=== PATIENT | male | born 1995 | race Caucasian/White ===

== ENCOUNTER 2020-09-03 21:23 | Emergency (ER) | payer OTHER, BC ==
[2020-09-03] MEDS ORDERED: Bacitracin Oint 1 GM U/D Packet TOP ONE (21:39)
--- NOTE | 2020-09-03 22:16 | EDM.PDOC ---
ED HPI GENERAL MEDICAL PROBLEM - General Chief Complaint: Laceration Stated Complaint: CUT ARM Time Seen by Provider: 09/03/20 21:28 Source of Information: Reports: Patient History Limitations: Reports: No Limitations - History of Present Illness INITIAL COMMENTS - FREE TEXT/NARRATIVE: chief complaint: cut right forearm This is a 25 year old male presents to the ER for evaluation of laceration and abrasions to the right forearm. Today, Marlon and his Brother were clearing brush with an axe. finished for the day- cleaning playing around with axe- threw it in the air and it came down and cut his forearm. Last Td 2013 general good health. 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 Treatments (clean and apply neosporin ointment) denies pain Pain Score (Numeric/FACES): 0 - Related Data Allergies Allergy/AdvReac Type Severity Reaction Status Date / Time No Known Allergies Allergy Verified 09/03/20 21:48 Home Meds: Home Meds NK [No Known Home Meds] 09/03/20 [History] Past Medical History - Infectious Disease History Infectious Disease History: Reports: Chicken Pox Social & Family History - Tobacco Use Tobacco Use Status *Q: Never Tobacco User - Caffeine Use Caffeine Use: Reports: Coffee - Recreational Drug Use Recreational Drug Use: No - Living Situation & Occupation Living situation: Reports: Single (lives with Family) ED ROS GENERAL - Review of Systems Review Of Systems: See Below Constitutional: Reports: Other (laceration to right forearm) Skin: Reports: Wound Immunologic: Reports: No Symptoms ED EXAM, SKIN/RASH Exam: See Below Exam Limited By: No Limitations General Appearance: Alert, WD/WN, No Apparent Distress, Other (neat and well groomed, pleasant and polite) Skin: Warm, Wound/Incision Location, Skin: Upper Extremity, Left Characteristics: Linear Lymphatic: No Adenopathy ED SKIN PROCEDURES - Laceration/Wound Repair Right Mid-Posterior Arm Appearance: Superficial, Linear, Clean Distal NVT: Neuro & Vascular Intact, No Tendon Injury Anesthetic Type: Other (none) Skin Prep: Chlorhexidine (Hibiciens), Saline Saline Irrigation (cc's): 40 Exploration/Debridement/Repair: Wound Explored, In a Bloodless Field Closed with: Dermabond Lac/Wound length In cm: 0.5 Tetanus Status Addressed: Yes Complications: No Course - Vital Signs Last Recorded V/S: Last Vital Signs Temp 98.2 F 09/03/20 21:48 Pulse 77 09/03/20 21:48 Resp 77 H 09/03/20 21:48 BP 124/81 09/03/20 21:48 Pulse Ox 99 09/03/20 21:48 - Orders/Labs/Meds Meds: Medications Discontinued Medications Generic Name Dose Route Start Last Admin Trade Name Fang PRN Reason Stop Dose Admin Bacitracin 1 dose 09/03/20 21:39 Bacitracin Oint 1 Gm U/D Packet TOP 09/03/20 21:40 ONETIME ONE Lidocaine HCl 5 ml 09/03/20 21:39 Lidocaine 1% 5 Ml Sdv INJECT 09/03/20 21:40 ONETIME ONE Departure - Departure Time of Disposition: 22:14 Disposition: Home, Self-Care 01 Condition: Good Clinical Impression: Abrasion, Broken skin - Discharge Information *PRESCRIPTION DRUG MONITORING PROGRAM REVIEWED*: Not Applicable *COPY OF PRESCRIPTION DRUG MONITORING REPORT IN PATIENT FINA: Not Applicable Instructions: Sutures, [place], or Adhesive Wound Closure, [id number], Abrasion, [id number] Referrals: PCP,None [Primary Care Provider] - Forms: ED Department Discharge Care Plan Goals: right forearm- laceration and abrasion -Dermabond -skin care discussed -monitor for signs of infection- redness, pain, fever, drainage or not improved Sepsis Event Note (ED) - Evaluation Sepsis Screening Result: No Definite Risk - Focused Exam Vital Signs: Vital Signs Temp Pulse Resp BP Pulse Ox 09/03/20 21:48 98.2 F 77 77 H 124/81 99 09/03/20 21:44 98.2 F 77 77 H 124/81 99 - Problem List & Annotations (1) Abrasion SNOMED Code(s): 144695737 Code(s): T14.8XXA - OTHER INJURY OF UNSPECIFIED BODY REGION, INITIAL ENCOUNTER Status: Acute Priority: High Current Visit: Yes (2) Broken skin SNOMED Code(s): 362266487 Code(s): R23.8 - OTHER SKIN CHANGES Status: Acute Priority: High Current Visit: Yes - Problem List Review Problem List Initiated/Reviewed/Updated: Yes - Assessment/Plan Plan: right forearm- laceration and abrasion -Dermabond -skin care discussed -monitor for signs of infection- redness, pain, fever, drainage or not improved
== END 2020-09-03 22:22 | disposition home or self-care (01) ==
LOC: JP.ED 21:23
DX: S51.811A Laceration without foreign body of right forearm, initial encounter (principal); W26.8XXA Contact with other sharp object(s), not elsewhere classified, initial encounter
CPT/HCPCS: 12001; 99282-25